=== PATIENT | male | born 1955 | race Caucasian/White ===

== ENCOUNTER → 2021-01-28 08:18 | Outpatient (BNVA) | payer OTHER, SELFPAY | PROVIDERS: Visit Provider Specialist | DX: G20 Parkinson's disease (principal) | CPT/HCPCS: 99205 ==

== ENCOUNTER → 2021-04-16 10:31 | Outpatient (BNVA) | payer OTHER, SELFPAY | PROVIDERS: PCP Nurse Practitioner Family; Visit Provider Specialist | DX: G20 Parkinson's disease (principal); G24.5 Blepharospasm; G62.9 Polyneuropathy, unspecified; R20.0 Anesthesia of skin; R20.2 Paresthesia of skin | CPT/HCPCS: 96116; 99214 ==

== ENCOUNTER 2021-04-18 10:30 | Outpatient (CLI) | payer OTHER, MEDICARE, SELFPAY ==
[2021-04-18 12:01] LABS: Vitamin B12 557 pg/mL (232-1245)
[2021-04-18 14:08] LABS: Folate Level > 20.0 ng/mL (4.5-32.2)
== END 2021-04-18 10:31 | disposition home or self-care (01) ==
PROVIDERS: PCP Nurse Practitioner Family; Visit Provider Specialist
DX: R20.0 Anesthesia of skin (principal); R20.2 Paresthesia of skin
CPT/HCPCS: 82607; 82746

== ENCOUNTER → 2021-06-25 10:50 | Outpatient (BNVA) | payer OTHER, MEDICARE, SELFPAY | PROVIDERS: PCP Nurse Practitioner Family; Visit Provider Specialist | DX: G24.5 Blepharospasm (principal); G20 Parkinson's disease | CPT/HCPCS: 64612; 99214; J0585 ==

== ENCOUNTER → 2021-09-18 10:28 | Outpatient (BNVA) | payer OTHER, MEDICARE, SELFPAY | PROVIDERS: PCP Nurse Practitioner Family; Visit Provider Specialist | DX: G24.5 Blepharospasm (principal); G20 Parkinson's disease; G62.9 Polyneuropathy, unspecified | CPT/HCPCS: 64612; 99213; 99214; J0585 ==

== ENCOUNTER → 2021-12-11 09:58 | Outpatient (BNVA) | payer OTHER, SELFPAY | PROVIDERS: PCP Nurse Practitioner Family; Visit Provider Specialist | DX: G24.5 Blepharospasm (principal) | CPT/HCPCS: G0463 ==